=== PATIENT | female | born 1955 | race African-American/Black ===

== ENCOUNTER 2017-04-11 14:44 | Emergency (ER) | payer SELFPAY ==
[~2017-04-11] VITALS: Ht 160 cm; Wt 80.0 kg
[2017-04-11 20:00] VITALS: BP 145/92
[2017-04-11] MEDS ORDERED: IBUPROFEN 800MG TABLET PO ONE (20:00)
[2017-04-11] MEDS ORDERED: HYDROCODONE/ACETAMINOPHEN 5/325MG TABLET PO ONE (20:00)
== END 2017-04-11 21:44 | disposition home or self-care (01) ==
LOC: ER 21:40
DX: F07.81 Postconcussional syndrome (principal); I10 Essential (primary) hypertension; G44.309 Post-traumatic headache, unspecified, not intractable
CPT/HCPCS: 70450; 99284